=== PATIENT | male | born 1980 | race African-American/Black ===

== ENCOUNTER 2025-04-26 17:08 | Emergency (ER) | payer BC ==
[2025-04-26 18:37] LABS: APPEARANCE,URINE CLEAR (Clear); GLUCOSE,URINE NEGATIVE (Negative); OCCULT BLOOD,URINE 2+ (Negative)
[2025-04-26 18:45] LABS: SQUAMOUS EPITHELIAL CELLS,UR 0-5 /hpf (0-5)
[2025-04-26 19:48] LABS: C. TRACHOMATIS BY PCR NOT DETECTED; N. GONORRHOEAE BY PCR NOT DETECTED
== END 2025-04-26 19:10 | disposition home or self-care (01) ==
LOC: JD.ED 17:08
DX: M25.561 Pain in right knee (principal); M25.562 Pain in left knee; G89.29 Other chronic pain; F17.210 Nicotine dependence, cigarettes, uncomplicated; Z88.6 Allergy status to analgesic agent; Z79.899 Other long term (current) drug therapy
CPT/HCPCS: 73562; 81001; 87491; 87591; 96372; 99283; A9270; J0696

== ENCOUNTER 2025-06-02 18:54 | Emergency (ER) | payer BC | END 2025-06-02 21:54 | disposition home or self-care (01) | LOC: JD.ED 18:54 | DX: M25.512 Pain in left shoulder (principal); F17.210 Nicotine dependence, cigarettes, uncomplicated; Z88.6 Allergy status to analgesic agent; Z88.8 Allergy status to other drugs, medicaments and biological substances; Z79.899 Other long term (current) drug therapy | CPT/HCPCS: 73030; 99283; A9270; 99284 ==

== ENCOUNTER 2025-06-08 00:14 | Emergency (ER) | payer BC, OTHER ==
[2025-06-08] MEDS: Ondansetron 4 MG Tab.DIS PO ONE (01:09)
== END 2025-06-08 02:30 | disposition home or self-care (01) ==
LOC: JD.ED 00:14
DX: M23.91 Unspecified internal derangement of right knee (principal); Z88.8 Allergy status to other drugs, medicaments and biological substances; Z88.6 Allergy status to analgesic agent; Z88.5 Allergy status to narcotic agent; Z79.899 Other long term (current) drug therapy; W10.9XXA Fall (on) (from) unspecified stairs and steps, initial encounter; Y93.89 Activity, other specified
CPT/HCPCS: 73564; 96372; 99283; A9270; J1171